=== PATIENT | male | born 1940 | race Caucasian/White ===

== ENCOUNTER 2019-12-14 12:12 | Emergency (ER) | payer MEDICARE ==
[2019-12-14 13:02] LABS: #Basophils 0.1 thou/uL (0.0-0.2); #Eosinphils 0.1 thou/uL (0.0-0.7); #Lymphocytes 0.6 thou/uL (1.20-3.40); %Basophils 0.5 % (0.0-1.0); %Eosinophils 0.4 % (0.0-10.0); %Lymphocytes 4.3 % (21.0-51.0); %Monocytes 6.5 % (0.0-10.0); %Neutrophils 88.2 % (42.0-75.0); Hemoglobin 12.4 g/dL (14.0-18.0); Mean Corpuscular HGB CONC 32.4 g/dL (32.0-36.0); Mean Corpuscular Hemoglobin 32.4 pg (27.0-31.0); Mean Platelet Volume 8.4 fL (7.4-10.4); Platelet Count 149 thou/uL (130-400); RBC Distribution Width 14.3 % (11.5-14.5); Red Blood Cell (RBC) Count 3.82 mill/uL (4.70-6.10); White Blood Cell (WBC) Count 14.7 thou/uL (4.8-10.8)
[2019-12-14 13:12] LABS: ALT (SGPT) 23 U/L (8-55); AST (SGOT) 17 U/L (5-34); Alkaline Phosphatase 45 U/L (40-110); Anion Gap 16 mmol/L (10-20); BUN (Urea Nitrogen) 29 mg/dL (8.4-25.7); Bilirubin, Total 0.8 mg/dL (0.2-1.2); Calc. Creatinine Clearance 0 mL/min (70-130); Calcium 9.1 mg/dL (7.8-10.44); Carbon Dioxide 19 mmol/L (23-31); Chloride 106 mmol/L (98-107); Estimated GFR-MDRD 38; Globulin 2.9 g/dL (2.4-3.5); Glucose 150 mg/dL (83-110); Potassium 4.6 mmol/L (3.5-5.1); Protein, Total 6.9 g/dL (5.8-8.1); Sodium 136 mmol/L (136-145)
[2019-12-14] MEDS ORDERED: Acetaminophen 325 MG TAB ONE (13:32)
[2019-12-14] MEDS ORDERED: Cefepime 1 GM VIAL ONE (13:32)
[2019-12-14 15:29] LABS: Lactic Acid 0.8 mmol/L (0.5-2.2)
[2019-12-14] MEDS ORDERED: Oseltamivir 75 MG CAP ONE (16:05)
--- NOTE | 2019-12-14 19:25 | RAD ---
PORTABLE CHEST 12/14/19 An AP portable film at 1308 is compared with a 03/15/13 study. An AICD remains in place. The heart is borderline in size. There is no congestive change present. The right lung is clear. It is somewhat harman zier in the left lung base near the costophrenic angles and elsewhere. I cannot tell if this is due t o slight rotation of the patient and portable technique or if there is any infiltrate here. I favor t his being an artifact of technique and rotation. There is no vascular congestion or edema. The trache a is midline. IMPRESSION: Minimal left basilar haziness that may be technical in origin. If symptoms persists, PA and lateral v iews could be helpful. POS: HOME
== END 2019-12-14 16:12 | disposition short-term general hospital (02) ==
LOC: BURERS 12:12
DX: J11.1 Influenza due to unidentified influenza virus with other respiratory manifestations (principal); J96.00 Acute respiratory failure, unspecified whether with hypoxia or hypercapnia; I25.10 Atherosclerotic heart disease of native coronary artery without angina pectoris; I25.2 Old myocardial infarction; Z86.73 Personal history of transient ischemic attack (TIA), and cerebral infarction without residual deficits; Z79.82 Long term (current) use of aspirin; Z79.891 Long term (current) use of opiate analgesic; Z79.899 Other long term (current) drug therapy
CPT/HCPCS: 36415; 71045; 80053; 83605; 83880; 84484; 85025; 87040; 87804; 93005; 96365; J0692; J7620

== ENCOUNTER 2021-07-02 17:45 | Outpatient (CLI) | payer MEDICARE | END 2021-07-02 17:46 | disposition home or self-care (01) | LOC: BURRAD 17:45 | PROVIDERS: ATTEND Family Medicine | DX: S60.222A Contusion of left hand, initial encounter (principal); M79.89 Other specified soft tissue disorders; M18.12 Unilateral primary osteoarthritis of first carpometacarpal joint, left hand ==